=== PATIENT | male | born 1975 | race Caucasian/White ===

== ENCOUNTER 2023-09-21 10:53 | Inpatient (IN) | payer OTHER ==
[2023-09-21] VITALS (11 sets, daily range): BP systolic 117–160; BP diastolic 73–98; PULSE 74–83; TEMP 97.7–98.5
[~2023-09-21] VITALS: Ht 182.9 cm; Wt 90.9 kg
[2023-09-21] MEDS ORDERED: Pantoprazole 40 MG in NS 10 ML IV SCH (12:14)
[2023-09-21] MEDS ORDERED: ALTACE 10MG TAB10 MG PO (12:15)
[2023-09-21] MEDS ORDERED: COREG 3.123.125 MG/T PO (12:15)
[2023-09-21] MEDS ORDERED: EUTHYROX50 MCG PO (12:15)
--- NOTE | 2023-09-21 14:30 | NUR ---
Received report from RAMON Lopez in the Emergency room for Mr. Hernandez. I called physical laboratory assistant and was informed that he was next for a heart cath, so within the hour they would be picking him up. John called back and stated that patient is going directly from emergency room to [facility] for cath procedure. Awaiting report from [facility] before patient arrival to room 319.
--- NOTE | 2023-09-21 15:11 | NUR ---
Refer to [facility] report for procedural sedation/notes
[2023-09-21] MEDS ORDERED: Heparin 1,000 UNITS/ML 10 ML Multi-Dose VIAL IV SCH (15:17)
[2023-09-21] MEDS ORDERED: Nitroglycerin 100 MCG/ML (Cath Lab) 10 ML VIAL IA SCH (15:19)
[2023-09-21] MEDS ORDERED: Verapamil 2.5 MG/ML 2 ML VIAL IA SCH (15:19)
[2023-09-21] MEDS ORDERED: fentaNYL 50 MCG/ML 2 ML VIAL IV SCH (15:24)
[2023-09-21] MEDS ORDERED: Midazolam 2 MG/2 ML VIAL IV SCH (15:25)
[2023-09-21] MEDS ORDERED: Iohexol 350 - 100 ML VIAL INCOR ONE (15:26)
--- NOTE | 2023-09-21 15:45 | NUR ---
Pt up to Medical floor - bedside handoff performed with RAMON Taylor: vitals initiated and stable - rt radial access site assessed and stable - call light in reach - family at bedside.
--- NOTE | 2023-09-21 15:59 | NUR ---
Pt arrived from [facility]. VSS. A&Ox4. S1S2. Clear lungs on RA. ABD round, soft, non-tender with audible bowel sounds. Palpable pulses in all extremities with 5/5 strength. R Radial access - site is CDI with pressure band on. 15cc of air in band. Pt denies pain, n/v, headache. Provided water. Pt discussed D/C plan with Dr Mccormack. Oriented Pt and family to room. No further needs at this time. Call light in reach.
[2023-09-21] MEDS ORDERED: 1/2 NS 1,000 ML IV SCH (16:00)
[2023-09-21] MEDS ORDERED: LIPITOR 40MG TA40 MG PO (16:08)
[2023-09-21] MEDS ORDERED: ASPIRIN E.C. 8181 MG PO (16:08)
[2023-09-21] MEDS ORDERED: PROTONIX 40MG T40 MG PO (16:09)
[2023-09-21] MEDS ORDERED: Carvedilol 3.125 MG TAB PO SCH (17:00)
--- NOTE | 2023-09-21 17:36 | NUR ---
Pt educated on D/C instructions and information. Scripts were sent with to be filled. Answered Pt and family questions. Post-cath VSS. left to fill Rx and will come back to pick Pt up once band deflated.
--- NOTE | 2023-09-21 17:54 | NUR ---
Pt's Right Radius has minimal dried blood around edges of band. Nothing over site. Released 3cc of air from band. VSS.
--- NOTE | 2023-09-21 18:50 | NUR ---
PATIENT SITTING UP RESTING IN BED WITH TV ON WITH NO FAMILY PRESENT WITH NO ACUTE DISTRESS NOTED. PATIENT ON ROOM AIR. INT TO RIGHT AC INTACT WITH NO COMPLICATIONS NOTED. TR BAND INTACT TO RIGHT WRIST WITH NO SIGNS OF BLEEDING OR HEMATOMA. BEDSIDE SHIFT REPORT COMPLETED WITH RON NAVARRO AT THIS TIME. PATIENT DENIES ANY NEEDS. BED IN LOW POSITION WITH WHEELS LOCKED WITH RAILS UP X3 AND CALL LIGHT WITHIN REACH.
--- NOTE | 2023-09-21 20:10 | NUR ---
PATIENT SITTING UP IN BED WITH TV ON WITH AT BEDSIDE WITH NO ACUTE DISTRESS NOTED. PATIENT ON ROOM AIR. ASSESSMENT COMPLETED. PATIENT TOLERATED WELL. INT TO RIGHT AC INTACT WITH NO COMPLICATIONS NOTED. TR BAND INTACT WITH NO BLEEDING OR HEMATOMA NOTED. 5 ML OF AIR REMOVED FROM TR BAND AND BAND REMOVED FROM RIGHT RADIAL. SITE CLEANED WITH ALCHOL AND BANDAID APPLIED. INT TO RIGHT AC REMOVED WITH CATHETER INTACT AND PRESSURE DRSSING APPLIED. PATIENT EDUCATED ON SIGNS OF BLEEDING, POSSIBLE BRUSING, AND WHEN TO CALL DOCTOR. PATIENT VERBALIZED UNDERSTANDING. PRIMARY NURSE LEFT ROOM AND PATIENT VERBALIZED UNDERSTANDING TO CALL ONCE DRESSED. PATIENT DENIES ANY OTHER NEEDS. BED IN LOW POSITION WITH WHEELS LOCKED WITH RAILS UP X3 AND CALL LIGHT WITHIN REACH.
--- NOTE | 2023-09-21 20:15 | NUR ---
PATIENT CALLED NURSES STATION. WHEELCHAIR TAKEN TO ROOM. NOVA WHEELED OUT TO POV WITH . PATIENT TOOK ALL HIS BELONGINGS. PATIENT STABLE.
== END 2023-09-21 20:15 | disposition left against medical advice (07) | DRG 287 ==
LOC: COL.ER 10:53 → MEDICAL 12:16
PROVIDERS: ADMIT Internal Medicine
PROC: 4A023N8 Measurement of Cardiac Sampling and Pressure, Bilateral, Percutaneous Approach (ICD-10-PCS; principal; 2023-09-21)
PROC: B2111ZZ Fluoroscopy of Multiple Coronary Arteries using Low Osmolar Contrast (ICD-10-PCS; 2023-09-21)
DX: I24.9 Acute ischemic heart disease, unspecified (principal); I10 Essential (primary) hypertension; E03.9 Hypothyroidism, unspecified; G93.2 Benign intracranial hypertension
CPT/HCPCS: C1769; C9113; G0378; J1644; J2250; J3010; Q9967

== ENCOUNTER 2023-11-21 15:54 | Emergency (ER) | payer OTHER ==
[~2023-11-21] VITALS: Ht 182.9 cm; Wt 90.9 kg
[~2023-11-21 15:54] MED LIST: ALTACE 10MG TAB10 MG PO; ASPIRIN E.C. 8181 MG PO; COREG 3.123.125 MG/T PO; EUTHYROX50 MCG PO; LIPITOR 40MG TA40 MG PO; PROTONIX 40MG T40 MG PO
[2023-11-21 16:00] VITALS: TEMP 98.4
[2023-11-21] MEDS ORDERED: NS 1,000 ML IV ONE (20:15)
[2023-11-21] MEDS ORDERED: chlordiazePOXIDE 25 MG CAP PO ONE ×2 (20:15→22:00)
[2023-11-21 20:17] LABS: BASO # 0.1 K/mm3 (0.0-0.2); EOS % 0.4 % (0.0-4.0); GRAN # 4.3 K/mm3 (1.4-6.5); GRAN % 61.1 % (42.2-75.2); HEMATOCRIT 45.2 % (42.0-52.0); HEMOGLOBIN 15.1 g/dl (13.5-18.0); LYMPH # 1.7 K/mm3 (1.2-3.4); LYMPH % 24.4 % (20.0-51.0); MEAN CELL VOLUME 93 fl (80.0-100.0); MEAN CORPUSCULAR HEMOGLOBIN 31 pg (27-31); MEAN CORPUSCULAR HGB CONC 33 g/dl (33.0-37.0); MONO # 0.9 K/mm3 (0.1-0.6); MONO % 12.8 % (1.7-9.3); PLATELET COUNT 249 K/mm3 (130-400); RED BLOOD COUNT 4.86 M/mm3 (4.20-5.60); REDCELL DISTRIBUTION WIDTH-CV 12.5 % (11.5-14.5)
[2023-11-21 20:42] LABS: ALANINE AMINOTRANSFERASE 85 U/L (0-55); ALBUMIN 4.5 g/dL (3.5-5.0); ALKALINE PHOSPHATASE 63 U/L (40-150); ANION GAP 18 mmol/L (7-16); AST,SGOT 65 U/L (5-34); BILIRUBIN,TOTAL 1.4 mg/dL (0.2-1.2); BLOOD UREA NITROGEN 15 mg/dL (8-26); CALCIUM 9.8 mg/dL (8.4-10.2); CHLORIDE 92 mEq/L (98-107); CREATININE, serum 0.88 mg/dL (0.72-1.25); GLUCOSE 94 mg/dL (70-99); LIPASE 32 U/L (8-78); POTASSIUM 4.1 mEq/L (3.5-4.5); SODIUM 134 mEq/L (136-145); TOTAL PROTEIN 8.5 g/dl (6.2-8.1)
[2023-11-21 20:43] LABS: ALCOHOL(ethanol),MEDICAL < 10 mg/dL (0-10)
[2023-11-21] MEDS ORDERED: LIBRIUM 25M25 MG/CAP PO (21:34)
[2023-11-21 22:00] VITALS: BP 173/116; PULSE 75
== END 2023-11-21 22:00 | disposition home or self-care (01) ==
LOC: COL.ER 15:54
PROVIDERS: Emergency Medicine
DX: F10.239 Alcohol dependence with withdrawal, unspecified (principal); Y90.0 Blood alcohol level of less than 20 mg/100 ml
CPT/HCPCS: J7030